=== PATIENT | female | born 1945 | race Hispanic/Latino ===

== ENCOUNTER 2017-05-16 06:00 | Day surgery (SDC) | payer OTHER ==
[2017-05-15 10:51] VITALS: BP 141/61
[2017-05-15 11:07] LABS: BASOPHILS % (AUTO) 0.8 % (0.0-5.0); EOSINOPHILS % (AUTO) 0.5 % (0.0-8.0); HEMATOCRIT 38.6 % (36-48); LYMPHOCYTES % (AUTO) 34.2 % (21.0-51.0); MEAN CORPUSCULAR HEMOGLOBIN 31.5 pg (27.0-33.0); MEAN CORPUSCULAR HGB CONC 34.9 g/dL (32.0-36.0); MEAN CORPUSCULAR VOLUME 90.5 fL (79-99); MONOCYTES % (AUTO) 7.7 % (3.0-13.0); NEUTROPHILS % (AUTO) 56.8 % (40.0-77.0); PLATELET COUNT (AUTO) 179 K/uL (130-400); RED BLOOD CELL COUNT(AUTO) 4.27 MIL/uL (4.00-5.50); RED CELL DISTRIBUTION WIDTH 14.1 % (11.0-15.5); WHITE BLOOD COUNT (AUTO) 3.8 K/uL (4.8-10.8)
[2017-05-15 11:15] LABS: CREATININE 0.9 mg/dL (0.5-1.5); POTASSIUM 3.1 mmol/L (3.5-5.1)
[2017-05-15 11:21] LABS: INR 1.04 (0.85-1.15); PARTIAL THROMBOPLASTIN TIME 27.1 SEC (26.3-35.5); PROTHROMBIN TIME 10.9 SEC (9.6-11.6)
[2017-05-16] VITALS (11 sets, daily range): BP systolic 109–151; BP diastolic 46–75
[~2017-05-16] VITALS: Ht 162.6 cm; Wt 52.3 kg
[~2017-05-16 06:00] MED LIST: ASPI-555 PO; CEFAZOLIN SODIUM 1 GM VIAL IVP SCH; CHOL200013 PO; IBUP-2077 PO; LEVO50TA11 PO; LEVO75TA10 PO; METO-408 PO; NITR0.4T50 SL; OMEG-75 PO; PRAV40TA3 PO; TOPI25TA48 PO
[2017-05-16 06:49] LABS: CREATININE 0.9 mg/dL (0.5-1.5); POTASSIUM 3.3 mmol/L (3.5-5.1)
[2017-05-16] MEDS ORDERED: SODIUM CHLORIDE 0.9% 1000ML 1,000 ML IV ONE (07:17)
[2017-05-16] MEDS ORDERED: LIDOCAINE HCL 1% MDV 50ML VIAL ONE (10:03)
[2017-05-16] MEDS ORDERED: MIDAZOLAM HCL 1 MG/ML 2ML VIAL ONE ×3 (10:03→12:00)
[2017-05-16] MEDS ORDERED: CEFAZOLIN 1GM / D5W 50ML 150 ML ONE (10:03)
[2017-05-16] MEDS ORDERED: MEPERIDINE-PF 25 MG/ML SYG ONE ×3 (10:03→12:00)
[2017-05-16] MEDS ORDERED: BUPIVACAINE/PF 0.25% 30ML VIAL IJ ONE (10:03)
[2017-05-16] MEDS ORDERED: OCTYL 2-CYANOACRYLATE 1 EACH TP ONE (12:18)
[2017-05-16] MEDS ORDERED: ONDANSETRON HCL 4 MG/2 ML VIAL IV PRN (12:30)
[2017-05-16] MEDS ORDERED: ACETAMINOPHEN-CODEINE 300/30MG TAB PO PRN ×2 (12:30)
[2017-05-16] MEDS ORDERED: DOXY100T2 PO (12:31)
[2017-05-16] MEDS ORDERED: CEFAZOLIN SODIUM 1 GM VIAL IVP SCH ×2 (17:00→18:00)
== END 2017-05-16 17:37 | disposition home or self-care (01) ==
LOC: DAH 06:00
PROVIDERS: ATTEND Internal Medicine Cardiovascular Disease
DX: I49.5 Sick sinus syndrome (principal); Z95.0 Presence of cardiac pacemaker; E03.9 Hypothyroidism, unspecified; E78.5 Hyperlipidemia, unspecified; Z98.890 Other specified postprocedural states; Z79.899 Other long term (current) drug therapy; Z79.01 Long term (current) use of anticoagulants
CPT/HCPCS: 33228; 36415 ×2; 80048 ×2; 85025; 85610; 85730; 93005; A4218; A4606; C1785; J0690 ×2; J2175 ×3; J2250 ×3; J3490 ×2; J7030; 99152; 99153

== ENCOUNTER → 2019-04-11 | Outpatient (CLI) | payer OTHER ==
[~2019-04-11] MED LIST changes: -CEFAZOLIN SODIUM 1 GM VIAL IVP SCH; +DOXY100T2 PO
== END | disposition home or self-care (01) ==
LOC: SHCH 12:40
PROVIDERS: ATTEND Internal Medicine Cardiovascular Disease
DX: I87.2 Venous insufficiency (chronic) (peripheral) (principal)
CPT/HCPCS: 93970

== ENCOUNTER → 2020-05-26 | Outpatient (CLI) | payer OTHER ==
[~2020-05-26] MED LIST changes: -ASPI-555 PO; +ASPI-556 PO; +OMEG-189 PO; -OMEG-75 PO
== END | disposition home or self-care (01) ==
LOC: SHCH 13:23
PROVIDERS: ATTEND Internal Medicine Cardiovascular Disease
DX: R06.09 Other forms of dyspnea (principal); R07.9 Chest pain, unspecified
CPT/HCPCS: 93306; 93356

== ENCOUNTER → 2020-05-28 | Outpatient (CLI) | payer OTHER ==
[~2020-05-28] VITALS: Ht 165.1 cm; Wt 49.4 kg
[~2020-05-28] MED LIST changes: +REGADENOSON 0.4 MG/5 ML PF SYG IVP SCH
== END | disposition home or self-care (01) ==
LOC: SHCH 08:38
PROVIDERS: ATTEND Internal Medicine Cardiovascular Disease
DX: R06.09 Other forms of dyspnea (principal); R07.9 Chest pain, unspecified
CPT/HCPCS: 78452; 93017; 96374; A9500 ×2

== ENCOUNTER → 2023-10-11 | Outpatient (CLI) | payer MEDICARE, MEDICAID ==
[~2023-10-11] MED LIST changes: -OMEG-189 PO; +OMEG-237 PO; -REGADENOSON 0.4 MG/5 ML PF SYG IVP SCH
== END | disposition home or self-care (01) ==
LOC: SHCH 10:00
PROVIDERS: ATTEND Internal Medicine Cardiovascular Disease
DX: I87.2 Venous insufficiency (chronic) (peripheral) (principal); I87.1 Compression of vein; R06.09 Other forms of dyspnea; R07.9 Chest pain, unspecified
CPT/HCPCS: 93306; 93970